=== PATIENT | male | born 1995 | race Hispanic/Latino ===

== ENCOUNTER 2019-03-09 06:15 | Emergency (ER) | payer OTHER ==
[~2019-03-09] VITALS: Ht 160 cm; Wt 82.5 kg
== END 2019-03-09 06:36 | disposition home or self-care (01) ==
LOC: ED 06:15
DX: Z04.1 Encounter for examination and observation following transport accident (principal); Z88.5 Allergy status to narcotic agent
CPT/HCPCS: 99283